=== PATIENT | female | born 1955 | race Caucasian/White ===

== ENCOUNTER → 2024-06-06 10:17 | Outpatient (REF) | payer MEDICARE, OTHER, SELFPAY | LOC: HWRAD 10:17 | PROVIDERS: ATTENDING PHYSICIAN Obstetrics & Gynecology; FAMILY PHYSICIAN Family Medicine | DX: N95.0 Postmenopausal bleeding (principal) | CPT/HCPCS: 76830; 76856 ==

== ENCOUNTER 2024-08-30 17:41 | Emergency (ER) | payer MEDICARE, OTHER, SELFPAY ==
[2024-08-30 17:43] VITALS: BP 120/72
[2024-08-30 18:05] LABS: % Basophils 0.7 % (0-2); % Eosinophils 5.1 % (0-6); % Immature Granulocytes 0.4 % (0-0.5); % Lymphocytes 14.3 % (20.5-51.1); % Monocytes 6.7 % (1.7-9.3); % Neutrophils 72.8 % (42.2-75.2); Absolute Basophils 0.1 10^3/uL (0-0.2); Absolute Eosinophils 0.5 10^3/uL (0-0.7); Absolute Lymphocytes 1.5 10^3/uL (1.2-3.4); Absolute Monocytes 0.7 10^3/uL (0.1-0.6); Absolute Neutrophils 7.4 10^3/uL (1.4-6.5); Hematocrit 30.8 % (37.0-47.0); Hemoglobin 10.6 g/dL (12.0-16.0); Mean Corp Hgb Conc. 34.4 g/dL (33.0-37.0); Mean Corpuscular Hgb 30.6 pg (27.0-31.0); Mean Platelet Volume 9.2 fL (7.4-10.4); Nucleated Red Blood Cells % 0 %; Platelet Count 306 10^3/uL (130-400); Red Blood Cell Count 3.46 10^6/uL (4.20-5.40); Red Cell Dist. Width 13.6 % (11.5-14.5); White Blood Cell Count 10.2 10^3/uL (4.8-10.8)
[2024-08-30 18:23] LABS: ALT (SGPT) 144 U/L (0-35); AST (SGOT) 138 U/L (14-36); Albumin 3.6 g/dl (3.5-5.0); Alkaline Phosphatase 386 U/L (38-126); Blood Urea Nitrogen 8 mg/dl (7-17); Calcium 8.7 mg/dl (8.4-10.2); Carbon Dioxide 23 mmol/L (22-30); Chloride 104 mmol/L (98-107); Glucose 183 mg/dl (70-99); Potassium 3.6 mmol/L (3.5-5.1); Sodium 137 mmol/L (135-145); Total Bilirubin 0.5 mg/dl (0.2-1.3); Total Protein 6.3 g/dl (6.3-8.2); eGFR > 60.00
--- NOTE | 2024-08-30 21:21 | ED.GENMED ---
History of Present Illness
General
Chief Complaint: Abnormal Lab Value
Time Seen by Provider: 08/30/24 19:40
History of Present Illness
History of Present Illness:
Note:
CHIEF COMPLAINT(S)
Fever and cough for one week.
HISTORY OF PRESENT ILLNESS
The patient is a 69-year-old female presenting with a one-week history of fever occurring daily. She reports an accompanying cough, noting that she has a history of asthma, but describes the current cough as slightly different from her usual asthma
symptoms. She denies any nasal congestion, dark urine, or light-colored stools. She also reports no burning sensation during urination. The patient has noted some abdominal tenderness.
EXTERNAL RECORDS REVIEWED
Laboratory results reviewed indicate normal white blood cell count and platelet count, with abnormal liver enzyme levels. Bilirubin levels were normal.
PHYSICAL EXAM
- GEN: WDWN, NAD
- Respiratory: Auscultation reveals clear lungs without distress, though diminished breath sounds at the left base.
- Cardiovascular: Regular rate and rhythm with no murmurs.
- Gastrointestinal: Tenderness noted in the epigastric region without rigidity or positive Lonsdale sign.
- Skin: No visible rashes or jaundice.
Nursing notes reviewed and vital signs reviewed.
PLAN
1. Order a chest X-ray to evaluate for potential pneumonia.
2. Perform an abdominal ultrasound to assess for gallbladder issues.
3. Conduct a COVID-19 test to rule out viral causes affecting liver enzymes.
4. Consider Lyme disease and tick-borne illnesses, given pending Lyme disease test.
DIFFERENTIAL DIAGNOSIS
The Differential Diagnosis includes, in no particular order and is not limited to:
1. Pneumonia
2. Gallbladder inflammation
3. COVID-19
4. Lyme disease
5. Viral hepatitis
6. Other tick-borne illnesses
7. Gastroenteritis
8. Influenza
9. Upper respiratory infection
10. Allergic reaction
Disposition:
SUMMARY OF ENCOUNTER
The patient, a 69-year-old female, presented with a one-week history of persistent fever and general weakness. She also reported a mild dry cough. Outpatient labs showed elevated liver function tests (LFTs). A chest x-ray was performed.
DISPOSITION
The patient is suitable for outpatient management due to her clinical stability, absence of respiratory distress, and normal vital signs.
ASSESSMENT
The cough and fever, alongside the chest x-ray findings, suggest pneumonia.
PLAN
- Treat the suspected pneumonia.
- Advise the patient to recheck liver enzymes with her primary care physician in two weeks.
INDEPENDENT INTERPRETATION OF TESTS
- My independent interpretation of the chest x-ray shows opacity in the left upper lobe, suggestive of pneumonia.
FOLLOW-UP INSTRUCTIONS
- Follow up with primary care physician to recheck liver enzymes in two weeks.
MEDICAL DECISION MAKING
Number and Complexity of Problems Addressed: Evaluated acute concerns of fever and cough, with considerations for pneumonia and liver enzyme elevation potentially related to acute illness.
Data: A chest x-ray was ordered and analyzed, revealing findings consistent with pneumonia. The elevated liver function tests were reviewed and considered in the context of the patient�s acute condition.
Risk: The decision to manage the patient on an outpatient basis was made based on her stability and absence of significant distress, while pending follow-up for liver function reassessment. Potential need for future adjustment based on liver enzyme
trends was communicated.
Phy Exam
Physical Exam
Physical Exam:
.
Course
Orders/Labs/Results
Orders:
Orders
08/30/24 17:55
CMP [Comprehensive Metabolic Panel] Urgent
Complete Blood Count/With Diff Urgent
08/30/24 19:50
CR Chest - 2 Views Urgent
Comment:
Reason For Exam: fever, cough
US Abdomen Complete/Upper Urgent
Comment:
Reason For Exam: elevated LFTs, transaminitis
08/30/24 19:51
COVID-19 Antigen Urgent
Source: Nasal Swab
08/30/24 21:21
Amoxicillin [Amoxil] 2,000 mg PO NOW STA
Azithromycin [Zithromax] 500 mg PO NOW STA
Abnormal Lab Results
08/30/24
17:55
RBC 3.46 L 10^6/uL
(4.20-5.40)
Hgb 10.6 L g/dL
(12.0-16.0)
Hct 30.8 L %
(37.0-47.0)
Absolute Neuts (auto) 7.4 H 10^3/uL
(1.4-6.5)
Absolute Monos (auto) 0.7 H 10^3/uL
(0.1-0.6)
Lymphocytes % 14.3 L %
(20.5-51.1)
Creatinine 0.5 L mg/dL
(0.6-1.0)
Glucose 183 H mg/dl
(70-99)
AST 138 H U/L
(14-36)
ALT 144 H U/L
(0-35)
Alkaline Phosphatase 386 H U/L
(38-126)
08/30/24 17:55
08/30/24 17:55
Vital Signs
Initial and Last Documented VS:
Initial Vital Signs
Temp Pulse Resp BP Pulse Ox
98.9 F 92 19 120/72 97
08/30/24 17:43 08/30/24 17:43 08/30/24 17:43 08/30/24 17:43 08/30/24 17:43
Last Documented Vital Signs
Temp Pulse Resp BP Pulse Ox
98.9 F 92 19 120/72 97
08/30/24 17:43 08/30/24 17:43 08/30/24 17:43 08/30/24 17:43 08/30/24 17:43
*Pulse Oximetry
Patient hypoxic: no
Comment: 97%
*Critical Care Note
Total Time (30-74mins, 75-104mins- exclusive of procedures): Not Applicable
ED Attending Note
-
Portions of this chart may have been created with voice recognition software.� Occasional wrong word or��sound alike� substitutions may have occurred due to the inherent limitations of voice recognition software.
Discharge Plan
Departure
Patient Disposition: Home (Routine Discharge)
Date of Disposition: 08/30/24
Time of Disposition: 21:34
Patient with high blood pressure during this ER visit?: No
Discharge Problem:
Left upper lobe pneumonia
Instructions: Pneumonia in adults - ED discharge instructions
Prescriptions:
New
amoxicillin 500 mg tablet
2,000 mg PO BID Qty: 36 0RF
azithromycin [Zithromax] 250 mg tablet
250 mg PO DAILY 4 Days Qty: 4 0RF
No Action
fluticasone propion-salmeterol [Wixela Inhub] 1 EACH blister with device
1 ea IH DAILY
mometasone [Nasonex] 17 GM spray,non-aerosol
2 spray intranasal HSPRN PRN (Reason: ALLERGY)
Referrals:
Vincenzo Aguirre MD [Family Provider, Family Practice]
Activity Restrictions/Additional Instructions:
Recheck your liver enzymes in 2 weeks with your primary care physician
Interventions
Interventions:
*Risk Screen - Suicide Last Done: 08/30/24 17:43
*Neglect/Abuse Screening Last Done: 08/30/24 17:43
Discharge Date and Time
Print Language: LATVIAN
[2024-08-30 21:25] LABS: COVID-19 Antigen Negative (Negative)
[2024-08-30] MEDS: ZITHROMAX 500 MG PO (21:39)
[2024-08-30] MEDS: AMOXIL 2000 MG PO (21:39)
== END 2024-08-30 22:01 | disposition home or self-care (01) ==
LOC: EMR 17:41
PROVIDERS: Emergency Medicine; Physician Assistant; EMERGENCY PHYSICIAN Student in an Organized Health Care Education/Training Program; FAMILY PHYSICIAN Family Medicine
DX: J18.9 Pneumonia, unspecified organism (principal); J45.909 Unspecified asthma, uncomplicated
CPT/HCPCS: 99284; 71046; 76700; 80053; 85025; 87811